=== PATIENT | female | born 1950 | race Caucasian/White ===

== ENCOUNTER 2017-07-23 08:24 | Inpatient (IN) | payer OTHER, MEDICAID, MEDICARE ==
[~2017-07-23] VITALS: Ht 162.6 cm; Wt 80.0 kg
[2017-07-23] VITALS (14 sets, daily range): BP systolic 136–207; BP diastolic 77–102; PULSE 87–119; RESP 18–28; TEMP 98.1–98.8; O2SAT 95–99
[~2017-07-23 08:24] MED LIST: LEVO50IN PO; LORA1TAB PO; LOSA100T3 PO; OMEP20TA39 PO; PAXI40TA PO
[2017-07-23] MEDS ORDERED: SODIUM CHLOR 0.9% 1000 ML INJ 1,000 ML IV SCH (08:51)
[2017-07-23] MEDS ORDERED: LORazepam 2 MG/ML VIAL IV PUSH ONE ×3 (09:00→12:30)
[2017-07-23] MEDS ORDERED: LABETALOL HCL 100 MG/20 ML VIAL IV PUSH ONE (09:00)
[2017-07-23] MEDS ORDERED: SODIUM CHLORIDE 0.9% FLUSH 10 ML FLUSH IV FLUSH PRN (09:00)
--- NOTE | 2017-07-23 09:06 | PD ---
HPI Chief Complaint: Psychiatric Symptoms Time Seen by Provider: 08:37 Travel History International Travel<30 days: No Contact w/Intl Traveler<30days: No Traveled to known affect area: No History of Present Illness HPI The patient is a 67-year-old male who presents emergency department via EMS as a Butt act. The police were apparently flagged down by a neighbor who found the patient outside, crawling on the ground, who was also confused. The patient states she found out some bad news about her daughter who lives in [place], apparently was in the recent accident. The patient states she took gabapentin, possibly yesterday or last night, unknown dose, in order to "calm down". She denies any suicidal ideation or homicidal ideation. However, patient is confused and is a poor and somewhat limited historian. She states she fell down yesterday, is unable to tell me what injuries she has. She denies any significant headache, neck pain, chest pain, shortness breath, nausea , vomiting, or abdominal pain. She denies alcohol or illicit drug ingestion, however, is a poor historian. PFSH Past Medical History Arthritis: Yes Anxiety: Yes Depression: Yes Cardiovascular Problems: Yes (HEART MURMUR) High Cholesterol: Yes COPD: Yes Fibromyalgia: Yes GERD: Yes Respiratory: Yes (COPD) Migraines: Yes Thyroid Disease: Yes (HYPOTHYROID) ?: Not Past Surgical History Surgical History: Unable to Obtain Social History Alcohol Use: No Tobacco Use: Yes (1 PPD X 40 YEARS) Substance Use: No Allergies-Medications (Allergen,Severity, Reaction): Coded Allergies: aspirin (Unverified Allergy, Unknown, 01/22/17) JITTERS Reported Meds & Prescriptions Reported Meds & Active Scripts Active Review of Systems ROS Limitations: Altered Mental Status, Psychotic, Poor Historian Except as stated in HPI: all other systems reviewed are Neg Neurologic: Positive: Change in Mentation Physical Exam Narrative GENERAL: Awake, alert, somewhat psychotic 67-year-old female. SKIN: Focused skin assessment warm/dry. HEAD: Atraumatic. Normocephalic. EYES: Pupils equal and round. No scleral icterus. No injection or drainage. ENT: No nasal bleeding or discharge. Dry mucous membranes. Upper dentures in place. NECK: Trachea midline. No JVD. CARDIOVASCULAR: Regular, tachycardic with a heart rate of 110. RESPIRATORY: No accessory muscle use. Clear to auscultation. Breath sounds equal bilaterally. GASTROINTESTINAL: Abdomen soft, non-tender, nondistended. No rebound tenderness. MUSCULOSKELETAL: No obvious deformities. No clubbing. No cyanosis. No edema. NEUROLOGICAL: Awake and alert. No obvious cranial nerve deficits. Motor grossly within normal limits. Normal speech. Follows simple commands, however, is not oriented to month or year. She does respond to name. PSYCHIATRIC: Appears confused and slightly psychotic. Data Data Last Documented VS Vital Signs Date Time Temp Pulse Resp B/P (MAP) Pulse Ox O2 Delivery O2 Flow Rate FiO2 07/23/17 10:54 108 18 164/80 (108) 95 Nasal Cannula 2.00 07/23/17 08:43 98.4 Orders Orders Electrocardiogram (07/23/17 08:51) Ammonia (07/23/17 08:51) Complete Blood Count With Diff (07/23/17 08:51) Comprehensive Metabolic Panel (07/23/17 08:51) Creatine Kinase (Cpk) (07/23/17 08:51) Prothrombin Time / Inr (Pt) (07/23/17 08:51) Act Partial Throm Time (Ptt) (07/23/17 08:51) Troponin I (07/23/17 08:51) Thyroid Stimulating Hormone (07/23/17 08:51) Urinalysis - C+S If Indicated (07/23/17 08:51) Lactic Acid Sepsis Protocol (07/23/17 08:51) Blood Culture (07/23/17 08:51) Chest, Single Ap (07/23/17 08:51) Ct Brain W/O Iv Contrast(Rout) (07/23/17 08:51) Blood Glucose (07/23/17 08:51) Ecg Monitoring (07/23/17 08:51) Iv Access Insert/Monitor (07/23/17 08:51) Oximetry (07/23/17 08:51) Sodium Chloride 0.9% Flush (Ns Flush) (07/23/17 09:00) Sodium Chlor 0.9% 1000 Ml Inj (Ns 1000 M (07/23/17 08:51) Drug Screen, Random Urine (07/23/17 08:51) Alcohol (Ethanol) (07/23/17 08:51) Labetalol Inj (Trandate Inj) (07/23/17 09:00) Call Poison Control (07/23/17 08:51) Lorazepam Inj (Ativan Inj) (07/23/17 09:00) Tylenol (Acetaminophen) (07/23/17 09:21) Salicylates (Aspirin) (07/23/17 09:21) Lorazepam Inj (Ativan Inj) (07/23/17 10:15) CKMB (07/23/17 09:06) CKMB% (07/23/17 09:06) Urine Culture (07/23/17 09:25) Sodium Chlor 0.9% 1000 Ml Inj (Ns 1000 M (07/23/17 10:45) Admit Order (Ed Use Only) (07/23/17 11:11) Place In Observation (07/23/17 ) Vital Signs (Adult) Q4H (07/23/17 11:11) Activity Oob With Assistance (07/23/17 11:11) Typewriters Functional Tester / Telemetry .CONTINUOUS (07/23/17 11:11) Diet Regular Basic (07/23/17 Lunch) Sodium Chlor 0.9% 1000 Ml Inj (Ns 1000 M (07/23/17 11:11) Sodium Chloride 0.9% Flush (Ns Flush) (07/23/17 11:15) Sodium Chloride 0.9% Flush (Ns Flush) (07/23/17 21:00) Ondansetron Inj (Zofran Inj) (07/23/17 11:15) Comprehensive Metabolic Panel (07/24/17 06:00) Complete Blood Count With Diff (07/24/17 06:00) Creatine Kinase (Cpk) (07/23/17 11:11) Creatine Kinase (Cpk) (07/23/17 17:11) Scd Bilateral/Knee High QUYEN.BID (07/23/17 11:11) Naloxone Inj (Narcan Inj) (07/23/17 11:15) Magnesium Hydroxide Liq (Milk Of Magnesi (07/23/17 11:15) Labs Laboratory Tests Test 07/23/17 09:06 07/23/17 09:20 07/23/17 09:25 07/23/17 09:26 White Blood Count 14.1 TH/MM3 Red Blood Count 4.71 MIL/MM3 Hemoglobin 14.2 GM/DL Hematocrit 41.8 % Mean Corpuscular Volume 88.7 FL Mean Corpuscular Hemoglobin 30.1 PG Mean Corpuscular Hemoglobin Concent 33.9 % Red Cell Distribution Width 15.3 % Platelet Count 246 TH/MM3 Mean Platelet Volume 8.7 FL Neutrophils (%) (Auto) 82.8 % Lymphocytes (%) (Auto) 9.0 % Monocytes (%) (Auto) 8.0 % Eosinophils (%) (Auto) 0.0 % Basophils (%) (Auto) 0.2 % Neutrophils # (Auto) 11.7 TH/MM3 Lymphocytes # (Auto) 1.3 TH/MM3 Monocytes # (Auto) 1.1 TH/MM3 Eosinophils # (Auto) 0.0 TH/MM3 Basophils # (Auto) 0.0 TH/MM3 CBC Comment DIFF FINAL Differential Comment Prothrombin Time 10.7 SEC Prothromb Time International Ratio 1.1 RATIO Activated Partial Thromboplast Time 25.9 SEC Blood Urea Nitrogen 32 MG/DL Creatinine 1.12 MG/DL Random Glucose 137 MG/DL Total Protein 9.1 GM/DL Albumin 4.4 GM/DL Calcium Level 10.0 MG/DL Alkaline Phosphatase 121 U/L Aspartate Amino Transf (AST/SGOT) 48 U/L Alanine Aminotransferase (ALT/SGPT) 24 U/L Total Bilirubin 1.0 MG/DL Sodium Level 139 MEQ/L Potassium Level 3.6 MEQ/L Chloride Level 106 MEQ/L Carbon Dioxide Level 25.7 MEQ/L Anion Gap 7 MEQ/L Estimat Glomerular Filtration Rate 48 ML/MIN Total Creatine Kinase 1428 U/L Creatine Kinase MB 7.2 NG/ML Creatine Kinase MB % 0.5 % Troponin I LESS THAN 0.02 NG/ML Thyroid Stimulating Hormone 3rd Gen 1.710 uIU/ML Ethyl Alcohol Level LESS THAN 3 MG/DL Salicylates Level 2.2 MG/DL Acetaminophen Level LESS THAN 2.0 MCG/ML Urine Color YELLOW Urine Turbidity CLEAR Urine pH 5.5 Urine Specific [place] 1.024 Urine Protein 30 mg/dL Urine Glucose (UA) NEG mg/dL Urine Ketones 10 mg/dL Urine Occult Blood MOD Urine Nitrite NEG Urine Bilirubin NEG Urine Urobilinogen LESS THAN 2.0 MG/DL Urine Leukocyte Esterase NEG Urine RBC 16 /hpf Urine WBC LESS THAN 1 /hpf Urine Bacteria OCC /hpf Urine Hyaline Casts 3 /lpf Microscopic Urinalysis Comment CATH-CULTURE IND Urine Opiates Screen NEG Urine Barbiturates Screen NEG Urine Amphetamines Screen NEG Urine Benzodiazepines Screen NEG Urine Cocaine Screen NEG Urine Cannabinoids Screen NEG Lactic Acid Level 1.8 mmol/L Ammonia 23 MCMOL/L MDM Medical Decision Making Medical Screen Exam Complete: Yes Emergency Medical Condition: Yes Medical Record Reviewed: Yes Interpretation(s) EKG reveals sinus tachycardia with a heart rate of 107. No ischemic changes or ectopy noted. Last Impressions Head CT 07/23/17850 Signed Impressions: Service Date/Time: Sunday, July 23, 2017 09:11 - CONCLUSION: 1. No acute intracranial abnormality identified. Raul Lewis MD Chest X-Ray 07/23/17850 Signed Impressions: Service Date/Time: Sunday, July 23, 2017 09:09 - CONCLUSION: 50 mm nodular density within the left lung base. This may simulate a rounded atelectasis. I cannot exclude a developing infiltrate or a pulmonary nodule. Consider a followup PA and lateral view of the chest upon resolution of acute symptoms to document resolution. Erwin Holt Jr., MD Laboratory Tests Test 07/23/17 09:06 07/23/17 09:20 07/23/17 09:25 07/23/17 09:26 White Blood Count 14.1 TH/MM3 Red Blood Count 4.71 MIL/MM3 Hemoglobin 14.2 GM/DL Hematocrit 41.8 % Mean Corpuscular Volume 88.7 FL Mean Corpuscular Hemoglobin 30.1 PG Mean Corpuscular Hemoglobin Concent 33.9 % Red Cell Distribution Width 15.3 % Platelet Count 246 TH/MM3 Mean Platelet Volume 8.7 FL Neutrophils (%) (Auto) 82.8 % Lymphocytes (%) (Auto) 9.0 % Monocytes (%) (Auto) 8.0 % Eosinophils (%) (Auto) 0.0 % Basophils (%) (Auto) 0.2 % Neutrophils # (Auto) 11.7 TH/MM3 Lymphocytes # (Auto) 1.3 TH/MM3 Monocytes # (Auto) 1.1 TH/MM3 Eosinophils # (Auto) 0.0 TH/MM3 Basophils # (Auto) 0.0 TH/MM3 CBC Comment DIFF FINAL Differential Comment Prothrombin Time 10.7 SEC Prothromb Time International Ratio 1.1 RATIO Activated Partial Thromboplast Time 25.9 SEC Blood Urea Nitrogen 32 MG/DL Creatinine 1.12 MG/DL Random Glucose 137 MG/DL Total Protein 9.1 GM/DL Albumin 4.4 GM/DL Calcium Level 10.0 MG/DL Alkaline Phosphatase 121 U/L Aspartate Amino Transf (AST/SGOT) 48 U/L Alanine Aminotransferase (ALT/SGPT) 24 U/L Total Bilirubin 1.0 MG/DL Sodium Level 139 MEQ/L Potassium Level 3.6 MEQ/L Chloride Level 106 MEQ/L Carbon Dioxide Level 25.7 MEQ/L Anion Gap 7 MEQ/L Estimat Glomerular Filtration Rate 48 ML/MIN Total Creatine Kinase 1428 U/L Creatine Kinase MB 7.2 NG/ML Creatine Kinase MB % 0.5 % Troponin I LESS THAN 0.02 NG/ML Thyroid Stimulating Hormone 3rd Gen 1.710 uIU/ML Ethyl Alcohol Level LESS THAN 3 MG/DL Salicylates Level 2.2 MG/DL Acetaminophen Level LESS THAN 2.0 MCG/ML Urine Color YELLOW Urine Turbidity CLEAR Urine pH 5.5 Urine Specific [place] 1.024 Urine Protein 30 mg/dL Urine Glucose (UA) NEG mg/dL Urine Ketones 10 mg/dL Urine Occult Blood MOD Urine Nitrite NEG Urine Bilirubin NEG Urine Urobilinogen LESS THAN 2.0 MG/DL Urine Leukocyte Esterase NEG Urine RBC 16 /hpf Urine WBC LESS THAN 1 /hpf Urine Bacteria OCC /hpf Urine Hyaline Casts 3 /lpf Microscopic Urinalysis Comment CATH-CULTURE IND Urine Opiates Screen NEG Urine Barbiturates Screen NEG Urine Amphetamines Screen NEG Urine Benzodiazepines Screen NEG Urine Cocaine Screen NEG Urine Cannabinoids Screen NEG Lactic Acid Level 1.8 mmol/L Ammonia 23 MCMOL/L Differential Diagnosis Differential diagnosis includes intentional overdose, accidental overdose, and gabapentin overdose, psychosis, drug ingestion, intracranial hemorrhage, hyponatremia, hypercalcemia, dehydration, acute kidney injury, rhabdomyolysis. Narrative Course IV was established, labs are drawn and sent, the patient was placed on cardiac telemetry monitoring and continuous pulse oximetry monitoring. CT the brain was obtained. Poison control was contacted in regards to possible gabapentin overdose. Patient was tachycardic and hypertensive, was administered Ativan 1 mg intravenously and labetalol 10 mg intravenously with 1 L of normal saline. The patient continued to be psychotic and aggressive, was administered another dose of Ativan 1 mg intravenously. CPK is elevated greater than 1400 consistent with rhabdomyolysis. The patient is clinically dehydrated with mildly elevated creatinine, another liter of IV fluids was ordered. Poison control was contacted, recommended checking acetaminophen and aspirin levels. The patient continues to be altered with rhabdomyolysis and will require IV fluids, therefore, the on-call medical service was paged for admission. The patient will also need psychiatry evaluation on the floor. Physician Communication Physician Communication The patient has [employer], therefore, [facility] were paged for admission. I discussed the patient with Dr. De Souza who agrees with admission. Diagnosis Primary Impression: Gabapentin overdose Qualified Codes: T42.6X4A - Poisoning by other antiepileptic and sedative- hypnotic drugs, undetermined, initial encounter Additional Impression: Rhabdomyolysis Qualified Codes: M62.82 - Rhabdomyolysis Admitting Information Admitting Physician Requests: Admit Condition: Stable Sarath Mejias MD Jul 23, 2017 09:06
[2017-07-23 09:17] LABS: AUTOMATED NEUTROPHIL # 11.7 TH/MM3 (1.8-7.7); BASOPHIL % 0.2 % (0.0-2.0); HEMATOCRIT 41.8 % (35.0-46.0); HEMOGLOBIN 14.2 GM/DL (11.6-15.3); LYMPHOCYTE # 1.3 TH/MM3 (1.0-4.8); MEAN CELL VOLUME 88.7 FL (80.0-100.0); MEAN CORPUSCULAR HEMOGLOBIN 30.1 PG (27.0-34.0); MEAN CORPUSCULAR HGB CONC 33.9 % (32.0-36.0); MEAN PLATELET VOLUME 8.7 FL (7.0-11.0); MONOCYTE # 1.1 TH/MM3 (0-0.9); NEUT % 82.8 % (16.0-70.0); PLATELET COUNT 246 TH/MM3 (150-450); RED BLOOD COUNT 4.71 MIL/MM3 (4.00-5.30); RED CELL DISTRIBUTION WIDTH 15.3 % (11.6-17.2); WHITE BLOOD COUNT 14.1 TH/MM3 (4.0-11.0)
--- NOTE | 2017-07-23 09:22 | RADRPT ---
EXAM DATE/TIME: 07/23/2017 09:09 [facility] COMPARISON: No previous studies available for comparison. INDICATIONS : Shortness of breath. MEDICAL HISTORY : Chronic obstructive pulmonary disease. SURGICAL HISTORY : None. ENCOUNTER: Initial ACUITY: 1 day PAIN SCORE: 0/10 LOCATION: Bilateral chest FINDINGS: A single frontal view the chest is a 1.5 cm area of nodular-like density within the left lung base. T here is linear atelectasis within the right lung base. Remaining lungs are clear. No effusions. Heart is normal in size. Bony structures are unremarkable. CONCLUSION: 50 mm nodular density within the left lung base. This may simulate a rounded atelectasis. I cannot ex clude a developing infiltrate or a pulmonary nodule. Consider a followup PA and lateral view of the c hest upon resolution of acute symptoms to document resolution. Erwin Holt Jr., MD on July 23, 2017 at 9:18 Board Certified Radiologist. This report was verified electronically.
[2017-07-23 09:27] LABS: INTERNATIONAL NORMALIZED RATIO 1.1 RATIO; PROTHROMBIN TIME - PATIENT 10.7 SEC (9.8-11.6)
--- NOTE | 2017-07-23 09:45 | RADRPT ---
EXAM DATE/TIME: 07/23/2017 09:11 [facility] COMPARISON: CT BRAIN W/O CONTRAST, August 21, 2015, 14:55. INDICATIONS : Altered mental status. RADIATION DOSE: 56.35 CTDIvol (mGy) MEDICAL HISTORY : Cardiovascular disease. Chronic obstructive pulmonary disease. SURGICAL HISTORY : None. ENCOUNTER: Initial ACUITY: 1 day PAIN SCALE: Non-responsive LOCATION: cranial TECHNIQUE: Multiple contiguous axial images were obtained of the head. Using automated exposure control and adj ustment of the mA and/or kV according to patient size, radiation dose was kept as low as reasonably a chievable to obtain optimal diagnostic quality images. DICOM format image data is available electro nically for review and comparison. FINDINGS: CEREBRUM: The ventricles are normal for age. No evidence of midline shift, mass lesion, hemorrhage or acute in farction. No extra-axial fluid collections are seen. POSTERIOR FOSSA: The cerebellum and brainstem are intact. The 4th ventricle is midline. The cerebellopontine angle i s unremarkable. EXTRACRANIAL: The visualized portion of the orbits is intact. SKULL: The calvaria is intact. No evidence of skull fracture. CONCLUSION: 1. No acute intracranial abnormality identified. Raul Lewis MD on July 23, 2017 at 9:41 Board Certified Radiologist. This report was verified electronically.
[2017-07-23 09:53] LABS: ALBUMIN 4.4 GM/DL (3.4-5.0); AST (GOT) 48 U/L (15-37); BICARBONATE 25.7 MEQ/L (21.0-32.0); BLOOD UREA NITROGEN 32 MG/DL (7-18); CHLORIDE 106 MEQ/L (98-107); CREATININE 1.12 MG/DL (0.50-1.00); GLOMERULAR FILTRATION RATE 48 ML/MIN (>89); GLUCOSE,RANDOM 137 MG/DL (74-106); SODIUM (NA) 139 MEQ/L (136-145)
[2017-07-23 09:54] LABS: ALT (GPT) 24 U/L (10-53)
[2017-07-23 10:07] LABS: ALKALINE PHOSPHATASE 121 U/L (45-117); TOTAL PROTEIN 9.1 GM/DL (6.4-8.2); TROPONIN I LESS THAN 0.02 NG/ML (0.02-0.05)
[2017-07-23 10:20] LABS: BACTERIA, URINE OCC /hpf; BILIRUBIN, URINE NEG (NEG); BLOOD, URINE MOD (NEG); GLUCOSE,URINE NEG (NEG); HYALINE CAST, URINE 3 /lpf (RARE); KETONE, URINE 10 mg/dL (NEG); NITRITE,URINE NEG (NEG); PH, URINE 5.5 (5.0-8.5); URINE COLOR YELLOW (YELLW/STRAW); URINE LEUKOCYTE ESTERASE NEG (NEG)
[2017-07-23] MEDS ORDERED: SODIUM CHLOR 0.9% 1000 ML INJ 1,000 ML IV ONE (10:45)
[2017-07-23] MEDS: SODIUM CHLOR 0.9% 1000 ML INJ 1,000 ML IV SCH (11:11)
[2017-07-23] MEDS ORDERED: NALOXONE HCL 0.4 MG/ML AMP IV PUSH PRN (11:15)
[2017-07-23] MEDS ORDERED: MAGNESIUM HYDROXIDE SUSP 30 ML CUP PO PRN (11:15)
[2017-07-23] MEDS ORDERED: ONDANSETRON HCL 4 MG/2 ML VIAL IVP PRN (11:15)
--- NOTE | 2017-07-23 11:39 | HHI.HP ---
[facility] Primary Care Physician Unknown Admission Diagnosis gabapentin overdose, rhabdomyolysis, Butt act Diagnoses: (1) Acute delirium Diagnosis: Principal (2) Rhabdomyolysis Diagnosis: Principal Travel History International Travel<30 Days: No Contact w/Intl Traveler <30 Da: No Traveled to Known Affected Are: No History of Present Illness Mrs. Krishnamurthy is a 67-year-old female. She is on a Butt act here secondary to being found confused in her front yard. She does not oriented to place time or self she has previously stated that the year is 1983. Most of the time she is in the delirium. Findings in the ER are positive for mild rhabdomyolysis. She takes gabapentin at baseline and overdose cannot be ruled out. No prior history of known seizure disorder. At this point she is not able to contribute any meaningful history. Review of Systems ROS Limitations: Altered Mental Status, Poor Historian Past Family Social History Past Medical History Depression Anxiety Osteoarthritis Fibromyalgia COPD Gastroesophageal reflux disease Hypothyroidism Benign cardiac murmur Past Surgical History Unable to obtain at this time secondary to delirium Reported Medications Administered Medications Medications (Trade) Dose Ordered Sig/Kike Route PRN Reason Start Time Stop Time Status Last Admin Dose Admin Sodium Chloride 1,000 ml @ 999 mls/hr BOLUS ONCE IV 07/23/17 10:45 07/23/17 11:45 07/23/17 10:53 Allergies: Coded Allergies: aspirin (Unverified Allergy, Unknown, 01/22/17) JITTERS Active Ordered Medications Administered Medications Medications (Trade) Dose Ordered Sig/Kike Route PRN Reason Start Time Stop Time Status Last Admin Dose Admin Sodium Chloride 1,000 ml @ 999 mls/hr BOLUS ONCE IV 07/23/17 10:45 07/23/17 11:45 07/23/17 10:53 Family History Unable to obtain at this time secondary to delirium Social History Patient smokes 1 pack per day No known alcohol abuse No known illicit drug abuse Physical Exam Vital Signs Vital Signs Date Time Temp Pulse Resp B/P (MAP) Pulse Ox O2 Delivery O2 Flow Rate FiO2 07/23/17 10:54 108 18 164/80 (108) 95 Nasal Cannula 2.00 07/23/17 10:10 104 18 183/86 (118) 95 Nasal Cannula 2.00 07/23/17 09:31 106 18 174/87 (116) 95 Nasal Cannula 2.00 07/23/17 09:14 18 99 Nasal Cannula 2.00 07/23/17 08:43 98.4 115 28 207/102 (137) 95 Nasal Cannula 2.00 Physical Exam GENERAL: NAD, A&Ox0 HEAD: Normocephalic. NECK: Supple, trachea midline. No lymphadenopathy. EYES: No scleral icterus. No injection or drainage. CARDIOVASCULAR: Regular rate and rhythm without murmurs, gallops, or rubs. RESPIRATORY: Breath sounds equal bilaterally. No accessory muscle use. GASTROINTESTINAL: Abdomen soft, non-tender, nondistended. MUSCULOSKELETAL: No cyanosis, or edema. SKIN: Warm and dry. NEURO: No focal neurological deficitis. Laboratory Laboratory Tests Test 07/23/17 09:06 07/23/17 09:20 07/23/17 09:25 07/23/17 09:26 White Blood Count 14.1 Red Blood Count 4.71 Hemoglobin 14.2 Hematocrit 41.8 Mean Corpuscular Volume 88.7 Mean Corpuscular Hemoglobin 30.1 Mean Corpuscular Hemoglobin Concent 33.9 Red Cell Distribution Width 15.3 Platelet Count 246 Mean Platelet Volume 8.7 Neutrophils (%) (Auto) 82.8 Lymphocytes (%) (Auto) 9.0 Monocytes (%) (Auto) 8.0 Eosinophils (%) (Auto) 0.0 Basophils (%) (Auto) 0.2 Neutrophils # (Auto) 11.7 Lymphocytes # (Auto) 1.3 Monocytes # (Auto) 1.1 Eosinophils # (Auto) 0.0 Basophils # (Auto) 0.0 CBC Comment DIFF FINAL Differential Comment Prothrombin Time 10.7 Prothromb Time International Ratio 1.1 Activated Partial Thromboplast Time 25.9 Blood Urea Nitrogen 32 Creatinine 1.12 Random Glucose 137 Total Protein 9.1 Albumin 4.4 Calcium Level 10.0 Alkaline Phosphatase 121 Aspartate Amino Transf (AST/SGOT) 48 Alanine Aminotransferase (ALT/SGPT) 24 Total Bilirubin 1.0 Sodium Level 139 Potassium Level 3.6 Chloride Level 106 Carbon Dioxide Level 25.7 Anion Gap 7 Estimat Glomerular Filtration Rate 48 Total Creatine Kinase 1428 Creatine Kinase MB 7.2 Creatine Kinase MB % 0.5 Troponin I LESS THAN 0.02 Thyroid Stimulating Hormone 3rd Gen 1.710 Ethyl Alcohol Level LESS THAN 3 Salicylates Level 2.2 Acetaminophen Level LESS THAN 2.0 Urine Color YELLOW Urine Turbidity CLEAR Urine pH 5.5 Urine Specific [place] 1.024 Urine Protein 30 Urine Glucose (UA) NEG Urine Ketones 10 Urine Occult Blood MOD Urine Nitrite NEG Urine Bilirubin NEG Urine Urobilinogen LESS THAN 2.0 Urine Leukocyte Esterase NEG Urine RBC 16 Urine WBC LESS THAN 1 Urine Bacteria OCC Urine Hyaline Casts 3 Microscopic Urinalysis Comment CATH-CULTURE IND Lactic Acid Level 1.8 Ammonia 23 Date/Time Source Procedure Growth Status 07/23/17 09:29 Blood Peripheral Aerobic Blood Culture Pending Received 07/23/17 09:29 Blood Peripheral Anaerobic Blood Culture Pending Received 07/23/17 09:25 Urine Catheterized Urine Urine Culture Pending Received Result Diagram: 07/23/1790507/23/[id number] Caprini VTE Risk Assessment Caprini VTE Risk Assessment: No/Low Risk (score <= 1) Caprini Risk Assessment Model Point Value = 1 Point Value = 2 Point Value = 3 Point Value = 5 Age 41-60 Minor surgery BMI > 25 kg/m2 Swollen legs Varicose veins or History of unexplained or recurrent spontaneous Oral contraceptives or hormone replacement Sepsis (< 1 month) Serious lung disease, including pneumonia (< 1 month) Abnormal pulmonary function Acute myocardial infarction Congestive heart failure (< 1 month) History of inflammatory bowel disease Medical patient at bed rest Age 61-74 Arthroscopic surgery Major open surgery (> 45 min) Laparoscopic surgery (> 45 min) Malignancy Confined to bed (> 72 hours) Immobilizing plaster cast Central venous access Age >= 75 History of VTE Family history of VTE Factor V Leiden Prothrombin [id number] Lupus anticoagulant Anticardiolipin antibodies Elevated serum homocysteine Heparin-induced thrombocytopenia Other congenital or acquired thrombophilia Stroke (< 1 month) Elective arthroplasty Hip, pelvis, or leg fracture Acute spinal cord injury (< 1 month) Prophylaxis Regimen Total Risk Factor Score Risk Level Prophylaxis Regimen 0-1 Low Early ambulation 2 Moderate Order ONE of the following: *Sequential Compression Device (SCD) *Heparin 5000 units SQ BID 3-4 Higher Order ONE of the following medications: *Heparin 5000 units SQ TID *Enoxaparin/Lovenox 40 mg SQ daily (WT < 150 kg, CrCl > 30 mL/min) *Enoxaparin/Lovenox 30 mg SQ daily (WT < 150 kg, CrCl > 10-29 mL/min) *Enoxaparin/Lovenox 30 mg SQ BID (WT < 150 kg, CrCl > 30 mL/min) AND/OR *Sequential Compression Device (SCD) 5 or more Highest Order ONE of the following medications: *Heparin 5000 units SQ TID (Preferred with Epidurals) *Enoxaparin/Lovenox 40 mg SQ daily (WT < 150 kg, CrCl > 30 mL/min) *Enoxaparin/Lovenox 30 mg SQ daily (WT < 150 kg, CrCl > 10-29 mL/min) *Enoxaparin/Lovenox 30 mg SQ BID (WT < 150 kg, CrCl > 30 mL/min) AND *Sequential Compression Device (SCD) Assessment and Plan Problem List: (1) Acute delirium ICD Code: R41.0 - Disorientation, unspecified (2) Rhabdomyolysis ICD Code: M62.82 - Rhabdomyolysis Status: Acute Assessment and Plan 67-year-old female admitted secondary to acute delirium Acute delirium Etiology uncertain Check EEG CT of brain is negative Treat for gabapentin overdose IV hydration Follow on telemetry for 24 hours Consider physical therapy evaluation tomorrow if patient's mental status improves Psych consult Rhabdomyolysis IV hydration Follow CK levels Nicotine dependence She is presently incoherent For treatment for now Depression Anxiety Osteoarthritis Fibromyalgia COPD Gastroesophageal reflux disease Benign cardiac murmur No exacerbation of these baseline conditions Follow Clinically DVT prophylaxis SCDs Problem Qualifiers (1) Rhabdomyolysis: Qualified Codes: M62.82 - Rhabdomyolysis Raul De Souza MD Jul 23, 2017 11:39
[2017-07-23] MEDS ORDERED: cloNIDine HCL 0.1 MG TAB PO PRN (15:15)
--- NOTE | 2017-07-23 15:36 | PD.PSY.CON ---
Provisional Diagnosis Admission Date Jul 23, 2017 at 11:13 [place]. Delirium due to another underlying medical condition History of Present Illness Service Psychiatry Consult Requested By ER team Reason for Consult Under Butt act due to psychotic behavior Primary Care Physician Unknown HPI The patient is a is a 67-year-old woman, with unknown social, psychiatric history, who came to the hospital a Butt act here secondary to being found confused in her front yard very disorganized. She does not oriented to place time or self she has previously stated that the year is 1983. Most of the time she is in the delirium. Findings in the ER are positive for mild rhabdomyolysis. She takes gabapentin at baseline and overdose cannot be ruled out. No prior history of known seizure disorder. At this point she is not able to contribute any meaningful history. On psychiatric evaluation the patient is alert, but very disoriented and confused, she is unable to provide any meaningful information for the psychiatric assessment at this moment. Review of Systems ROS Limitations: Altered Mental Status Past Family Social History Coded Allergies: aspirin (Unverified Allergy, Unknown, 01/22/17) JITTERS Current Medications Medications (Trade) Dose Ordered Sig/Kike Route Start Time Stop Time Status Last Admin Sodium Chloride 1,000 ml @ 100 mls/hr Q10H IV 07/23/17 11:11 07/23/17 11:11 (NS Flush) 2 ml UNSCH PRN IV FLUSH 07/23/17 11:15 (NS Flush) 2 ml BID IV FLUSH 07/23/17 21:00 (Zofran Inj) 4 mg Q6H PRN IVP 07/23/17 11:15 (Narcan Inj) 0.4 mg UNSCH PRN IV PUSH 07/23/17 11:15 (Milk Of Magnesia Liq) 30 ml Q12H PRN PO 07/23/17 11:15 (Vasotec Inj) 1.25 mg Q6H PRN IV PUSH 07/23/17 15:15 (Catapres) 0.1 mg Q6H PRN PO 07/23/17 15:15 (Ativan Inj) 0.5 mg Q6H PRN IV PUSH 07/23/17 15:15 Physical Exam Vital Signs Vital Signs Date Time Temp Pulse Resp B/P (MAP) Pulse Ox O2 Delivery O2 Flow Rate FiO2 07/23/17 12:33 113 18 177/99 (125) 95 Nasal Cannula 2.00 07/23/17 08:43 98.4 Lab Results Test 07/23/17 09:06 07/23/17 09:20 07/23/17 09:25 07/23/17 09:26 White Blood Count 14.1 TH/MM3 Red Blood Count 4.71 MIL/MM3 Hemoglobin 14.2 GM/DL Hematocrit 41.8 % Mean Corpuscular Volume 88.7 FL Mean Corpuscular Hemoglobin 30.1 PG Mean Corpuscular Hemoglobin Concent 33.9 % Red Cell Distribution Width 15.3 % Platelet Count 246 TH/MM3 Mean Platelet Volume 8.7 FL Neutrophils (%) (Auto) 82.8 % Lymphocytes (%) (Auto) 9.0 % Monocytes (%) (Auto) 8.0 % Eosinophils (%) (Auto) 0.0 % Basophils (%) (Auto) 0.2 % Neutrophils # (Auto) 11.7 TH/MM3 Lymphocytes # (Auto) 1.3 TH/MM3 Monocytes # (Auto) 1.1 TH/MM3 Eosinophils # (Auto) 0.0 TH/MM3 Basophils # (Auto) 0.0 TH/MM3 CBC Comment DIFF FINAL Differential Comment Prothrombin Time 10.7 SEC Prothromb Time International Ratio 1.1 RATIO Activated Partial Thromboplast Time 25.9 SEC Blood Urea Nitrogen 32 MG/DL Creatinine 1.12 MG/DL Random Glucose 137 MG/DL Total Protein 9.1 GM/DL Albumin 4.4 GM/DL Calcium Level 10.0 MG/DL Alkaline Phosphatase 121 U/L Aspartate Amino Transf (AST/SGOT) 48 U/L Alanine Aminotransferase (ALT/SGPT) 24 U/L Total Bilirubin 1.0 MG/DL Sodium Level 139 MEQ/L Potassium Level 3.6 MEQ/L Chloride Level 106 MEQ/L Carbon Dioxide Level 25.7 MEQ/L Anion Gap 7 MEQ/L Estimat Glomerular Filtration Rate 48 ML/MIN Total Creatine Kinase 1428 U/L Creatine Kinase MB 7.2 NG/ML Creatine Kinase MB % 0.5 % Troponin I LESS THAN 0.02 NG/ML Thyroid Stimulating Hormone 3rd Gen 1.710 uIU/ML Ethyl Alcohol Level LESS THAN 3 MG/DL Salicylates Level 2.2 MG/DL Acetaminophen Level LESS THAN 2.0 MCG/ML Urine Color YELLOW Urine Turbidity CLEAR Urine pH 5.5 Urine Specific [place] 1.024 Urine Protein 30 mg/dL Urine Glucose (UA) NEG mg/dL Urine Ketones 10 mg/dL Urine Occult Blood MOD Urine Nitrite NEG Urine Bilirubin NEG Urine Urobilinogen LESS THAN 2.0 MG/DL Urine Leukocyte Esterase NEG Urine RBC 16 /hpf Urine WBC LESS THAN 1 /hpf Urine Bacteria OCC /hpf Urine Hyaline Casts 3 /lpf Microscopic Urinalysis Comment CATH-CULTURE IND Urine Opiates Screen NEG Urine Barbiturates Screen NEG Urine Amphetamines Screen NEG Urine Benzodiazepines Screen NEG Urine Cocaine Screen NEG Urine Cannabinoids Screen NEG Lactic Acid Level 1.8 mmol/L Ammonia 23 MCMOL/L Date/Time Source Procedure Growth Status 07/23/17 09:29 Blood Peripheral Aerobic Blood Culture Pending Received 07/23/17 09:29 Blood Peripheral Anaerobic Blood Culture Pending Received 07/23/17 09:25 Urine Catheterized Urine Urine Culture Pending Received Mental Status Examination Mental Status Exam Remarks Limited due to lack of cooperation Assessment & Plan Problem List: (1) Delirium due to another medical condition ICD Codes: F05 - Delirium due to known physiological condition Assessment & Plan: On psychiatric evaluation today the patient is disoriented, very confused and disorganized, with impaired attention and level of consciousness which seems to be consistent with acute delirium that most probably is related with the gabapentin overdose and acute kidney injury. I will start the patient in a very low dose of antipsychotic to help with delirium , Seroquel 12.5 mg twice a day. We tried to find collateral information, but unfortunately the person listed in the medical record did not answer. I will follow-up. (2) Rhabdomyolysis ICD Codes: M62.82 - Rhabdomyolysis Status: Acute (3) Gabapentin overdose ICD Codes: T42.6X1A - Poisoning by other antiepileptic and sedative-hypnotic drugs, accidental (unintentional), initial encounter Status: Acute Assessment & Plan Estimated LOS: days Problem Qualifiers (1) Rhabdomyolysis: Qualified Codes: M62.82 - Rhabdomyolysis (2) Gabapentin overdose: Qualified Codes: T42.6X4A - Poisoning by other antiepileptic and sedative- hypnotic drugs, undetermined, initial encounter Delon Georges MD Jul 23, 2017 15:36
[2017-07-23] MEDS ORDERED: PILL SPLITTER OTHER PRN (15:45)
--- NOTE | 2017-07-23 15:51 | MG ---
cc: PRADEEP MORALES M.D. Lab No: [id number] Date:07/23/2017 Age: Sex: F Race: TECHNIQUE 17 channel EEG. DESCRIPTION The background rhythm reveals mild slowing in the theta range at roughly 67 Hz amplitude is 10-20 microvolts. There are no lateralizing features identified and no epileptic features are identified. There is some muscle artifact. Photic stimulation results in a modest driving response. INTERPRETATION Abnormal study consistent with a [id number] encephalopathy. MD DELMAR Morrison/edward /3:04 PM /3:31 PM
[2017-07-23] MEDS: LORazepam 2 MG/ML VIAL IV PUSH PRN (16:01)
[2017-07-23] MEDS: ENALAPRILAT 1.25 MG/ML VIAL IV PUSH PRN (16:01)
--- NOTE | 2017-07-23 18:50 | EKG ---
Date Performed: 07/23/2017 Time Performed: 08:55:52 PTAGE: 67 years EKG: SINUS TACHYCARDIA When compared to previous tracing, sinus rate has increased. ABNORMAL RHY THM ECG PREVIOUS TRACING : 08/21/2015 15.10 DOCTOR: Navjot Norton Interpretating Date/Time 07/23/2017 18:49:16
[2017-07-23] MEDS: SODIUM CHLORIDE 0.9% FLUSH 10 ML FLUSH IV FLUSH SCH (20:07)
[2017-07-23] MEDS: RESP: ALBUTEROL 2.5 MG/IPRATROPIUM 0.5 MG NEB (PRN) NEB (20:15)
[2017-07-24] VITALS (11 sets, daily range): BP systolic 168–188; BP diastolic 79–101; PULSE 86–121; RESP 18–20; TEMP 97.3–98; O2SAT 94–98
[2017-07-24] MEDS: LORazepam 2 MG/ML VIAL IV PUSH PRN ×2 (00:17→15:15)
[2017-07-24] MEDS ORDERED: QUEtiapine FUMARATE 25 MG TAB PO ONE (02:45)
[2017-07-24] MEDS: RESP: ALBUTEROL 2.5 MG/IPRATROPIUM 0.5 MG NEB (PRN) NEB ×3 (03:44→19:12)
[2017-07-24] MEDS ORDERED: methylPREDNISolone SOD SUCC 125 MG/2 ML VIAL IV PUSH ONE (03:45)
[2017-07-24] MEDS: PANTOPRAZOLE SODIUM 40 MG VIAL IV PUSH SCH ×2 (03:52→15:49)
[2017-07-24] MEDS: cefTRIAXone INJ 1,000 MG in SODIUM CHLORIDE 0.9% INJ 100 ML IV SCH (03:53)
--- NOTE | 2017-07-24 04:27 | RADRPT ---
EXAM DATE/TIME: 07/24/2017 04:07 [facility] COMPARISON: No previous studies available for comparison. INDICATIONS : Vomiting. MEDICAL HISTORY : Cardiovascular disease. Chronic obstructive pulmonary disease SURGICAL HISTORY : None. ENCOUNTER: Initial ACUITY: 1 day PAIN SCORE: 2/10 LOCATION: Bilateral abdomen FINDINGS: Supine view of the abdomen was performed. The abdominal bowel gas pattern is normal. No abnormal ma sses, calcifications, or organomegaly is seen. The osseous structures are unremarkable. Popcorn type calcifications in the pelvis are felt to be related to fibroids. CONCLUSION: No acute disease. George Conn MD on July 24, 2017 at 4:24 Board Certified Radiologist. This report was verified electronically.
[2017-07-24] MEDS: AZITHROMYCIN INJ 500 MG in SODIUM CHLOR 0.9% 250 ML INJ 250 ML IV SCH (05:47)
--- NOTE | 2017-07-24 06:28 | RADRPT ---
EXAM DATE/TIME: 07/24/2017 06:14 [facility] COMPARISON: CHEST SINGLE AP, July 23, 2017, 9:09. INDICATIONS : Shortness of breath. RADIATION DOSE: 13.26 CTDIvol (mGy) MEDICAL HISTORY : Cardiovascular disease. Chronic obstructive pulmonary disease. SURGICAL HISTORY : None. ENCOUNTER: Initial ACUITY: 1 day PAIN SCALE: 0/10 LOCATION: chest TECHNIQUE: Volumetric scanning of the chest was performed. Using automated exposure control and adjustment of t he mA and/or kV according to patient size, radiation dose was kept as low as reasonably achievable to obtain optimal diagnostic quality images. DICOM format image data is available electronically for r eview and comparison. Follow-up recommendations for detected pulmonary nodules are based at a minimum on nodule size and pa tient risk factors according to Fleischner Society Guidelines. FINDINGS: The lungs are clear. No evidence of pneumonia. No pleural or pericardial effusions or adenopathy. The re is prominent coronary artery calcification seen. The osseous structures are intact. CONCLUSION: Clear lungs. Coronary artery calcification. George Conn MD on July 24, 2017 at 6:25 Board Certified Radiologist. This report was verified electronically.
[2017-07-24] MEDS: SODIUM CHLOR 0.9% 1000 ML INJ 1,000 ML IV SCH ×3 (07:11→17:11)
[2017-07-24 07:25] LABS: AUTOMATED NEUTROPHIL # 10.6 TH/MM3 (1.8-7.7); BASOPHIL % 0.2 % (0.0-2.0); HEMOGLOBIN 12.9 GM/DL (11.6-15.3); LYMPH % 6.4 % (9.0-44.0); LYMPHOCYTE # 0.8 TH/MM3 (1.0-4.8); MEAN CELL VOLUME 88.6 FL (80.0-100.0); MEAN CORPUSCULAR HEMOGLOBIN 30.2 PG (27.0-34.0); MEAN CORPUSCULAR HGB CONC 34.1 % (32.0-36.0); MEAN PLATELET VOLUME 8.9 FL (7.0-11.0); MONO % 2.3 % (0.0-8.0); MONOCYTE # 0.3 TH/MM3 (0-0.9); NEUT % 91.1 % (16.0-70.0); PLATELET COUNT 223 TH/MM3 (150-450); RED BLOOD COUNT 4.29 MIL/MM3 (4.00-5.30); RED CELL DISTRIBUTION WIDTH 15.8 % (11.6-17.2); WHITE BLOOD COUNT 11.7 TH/MM3 (4.0-11.0)
[2017-07-24 07:59] LABS: ALBUMIN 3.8 GM/DL (3.4-5.0); ALT (GPT) 23 U/L (10-53); AST (GOT) 56 U/L (15-37); BICARBONATE 24.9 MEQ/L (21.0-32.0); BLOOD UREA NITROGEN 12 MG/DL (7-18); CALCIUM 9.2 MG/DL (8.5-10.1); CHLORIDE 106 MEQ/L (98-107); GLOMERULAR FILTRATION RATE 99 ML/MIN (>89); GLUCOSE,RANDOM 127 MG/DL (74-106); SODIUM (NA) 140 MEQ/L (136-145)
[2017-07-24 08:11] LABS: ALKALINE PHOSPHATASE 99 U/L (45-117)
[2017-07-24] MEDS: SODIUM CHLORIDE 0.9% FLUSH 10 ML FLUSH IV FLUSH SCH ×2 (09:00→21:32)
[2017-07-24] MEDS: methylPREDNISolone SOD SUCC 40 MG/1 ML VIAL IV PUSH SCH ×2 (12:16→15:49)
[2017-07-24] MEDS: QUEtiapine FUMARATE 25 MG TAB PO SCH ×2 (12:16→17:27)
[2017-07-24] MEDS ORDERED: NIFEdipine 30 MG SUSTAINED RELEASE TAB PO ONE (13:00)
[2017-07-24] MEDS ORDERED: POTASSIUM CHLORIDE 10 MEQ CONTROLLED RELEASE TAB PO ONE (13:00)
[2017-07-24] MEDS: ENALAPRILAT 1.25 MG/ML VIAL IV PUSH PRN (15:50)
--- NOTE | 2017-07-24 16:12 | HHI.PR ---
Subjective Remarks Patient continues confused, however improved according to nursing. Treat is very disjointed, however patient says that she received some bad news recently and did take too much medication. She does say that she took too much gabapentin. Objective Vital Signs Date Time Temp Pulse Resp B/P (MAP) Pulse Ox O2 Delivery O2 Flow Rate FiO2 07/24/17 15:46 112 185/97 (126) 07/24/17 14:41 97.3 121 20 188/98 (128) 95 07/24/17 11:45 98.0 114 176/97 (123) 94 07/24/17 07:45 112 07/24/17 07:23 96 07/24/17 07:03 97.6 86 20 175/96 (122) 97 07/23/17 23:14 98.1 87 18 164/84 (110) 97 07/23/17 22:05 98.8 115 19 136/83 (100) 96 07/23/17 21:50 07/23/17 21:19 119 24 163/79 (107) 95 Nasal Cannula 3.00 07/23/17 20:47 118 22 172/77 (108) 97 Nasal Cannula 3.00 07/23/17 20:10 98 Nasal Cannula 2.00 07/23/17 19:11 117 24 179/94 (122) 96 Nasal Cannula 2.00 07/23/17 17:45 113 18 171/97 (121) 98 Room Air 07/23/17 16:53 113 18 187/91 (123) 97 Room Air I/O 07/23/17 07/23/17 07/23/17 07/24/17 07/24/17 07/24/17 07:00 15:00 23:00 07:00 15:00 23:00 Intake Total 2000 ml Balance 2000 ml Intake IV Total 2000 ml Result Diagram: 07/24/17 0641 07/24/17 0641 Objective Remarks GENERAL: Patient awake, very disjointed and slowed speech. Disoriented. SKIN: Warm and dry. HEAD: Normocephalic. EYES: No scleral icterus. No injection or drainage. NECK: Supple, trachea midline. No JVD. CARDIOVASCULAR: Regular rate and rhythm without murmurs, gallops, or rubs. RESPIRATORY: Breath sounds equal bilaterally. No accessory muscle use. GASTROINTESTINAL: Abdomen soft, non-tender, nondistended. MUSCULOSKELETAL: No cyanosis, or edema. BACK: Nontender without obvious deformity. No CVA tenderness. A/P Assessment and Plan 67-year-old female admitted secondary to acute delirium //Acute delirium Etiology uncertain Check EEG CT of brain is negative Treat for gabapentin overdose IV hydration Follow on telemetry for 24 hours Consider physical therapy evaluation tomorrow if patient's mental status improves Psych consult = Appears to be secondary to gabapentin overdose based on history. Will check gabapentin level. Continue to hold medication. Continue to monitor. Appreciate psychiatry assistance. //Rhabdomyolysis IV hydration Follow CK levels = CK 1555 today. Mild improvement. Continue IV fluid. Continue to monitor. //Accelerated hypertension. Systolic blood pressures up to the 180s. Started on nifedipine. Continue to monitor //Nicotine dependence -We will need to discuss cessation with patient when she is more coherent. //Depression Anxiety Osteoarthritis Fibromyalgia COPD Gastroesophageal reflux disease Benign cardiac murmur No exacerbation of these baseline conditions Follow Clinically = Psychiatry following. Appreciate assistance. //Suspect intentional overdose. = Psychiatry following. Patient may corrected. Continue sitter. Appreciate psychiatry assistance. /Hypokalemia. Potassium 3.1. Replace. Continue to monitor. DVT prophylaxis SCDs Discharge Planning Patient continues Butt acted due to suspected overdose. Continued rhabdomyolysis. Awaiting improvement in CK. Brandt Molina MD Jul 24, 2017 16:12
[2017-07-25] MEDS: RESP: ALBUTEROL 2.5 MG/IPRATROPIUM 0.5 MG NEB (PRN) NEB (00:39)
[2017-07-25 03:48] VITALS: BP 166/89; PULSE 113; RESP 18; TEMP 98.1; O2SAT 95
[2017-07-25] MEDS: cefTRIAXone INJ 1,000 MG in SODIUM CHLORIDE 0.9% INJ 100 ML IV SCH (04:26)
[2017-07-25] MEDS: PANTOPRAZOLE SODIUM 40 MG VIAL IV PUSH SCH ×2 (04:26→16:20)
[2017-07-25 05:20] LABS: AUTOMATED NEUTROPHIL # 9.4 TH/MM3 (1.8-7.7); HEMOGLOBIN 12.5 GM/DL (11.6-15.3); LYMPH % 10.6 % (9.0-44.0); LYMPHOCYTE # 1.2 TH/MM3 (1.0-4.8); MEAN CELL VOLUME 87.8 FL (80.0-100.0); MEAN CORPUSCULAR HEMOGLOBIN 29.6 PG (27.0-34.0); MEAN CORPUSCULAR HGB CONC 33.8 % (32.0-36.0); MEAN PLATELET VOLUME 9.1 FL (7.0-11.0); MONO % 9.8 % (0.0-8.0); MONOCYTE # 1.2 TH/MM3 (0-0.9); NEUT % 79.6 % (16.0-70.0); PLATELET COUNT 225 TH/MM3 (150-450); RED BLOOD COUNT 4.22 MIL/MM3 (4.00-5.30); RED CELL DISTRIBUTION WIDTH 15.3 % (11.6-17.2); WHITE BLOOD COUNT 11.8 TH/MM3 (4.0-11.0)
[2017-07-25] MEDS: AZITHROMYCIN INJ 500 MG in SODIUM CHLOR 0.9% 250 ML INJ 250 ML IV SCH (05:25)
[2017-07-25] MEDS: SODIUM CHLOR 0.9% 1000 ML INJ 1,000 ML IV SCH ×3 (05:25→23:20)
[2017-07-25 05:38] LABS: ALBUMIN 3.8 GM/DL (3.4-5.0); BICARBONATE 22.8 MEQ/L (21.0-32.0); CALCIUM 9.3 MG/DL (8.5-10.1); CREATININE 0.59 MG/DL (0.50-1.00); MAGNESIUM 1.7 MG/DL (1.5-2.5)
[2017-07-25 05:53] LABS: PHOSPHORUS 1.7 MG/DL (2.5-4.9)
[2017-07-25 07:55] VITALS: BP 166/102; PULSE 99; RESP 20; TEMP 98.1; O2SAT 97
[2017-07-25] MEDS: SODIUM CHLORIDE 0.9% FLUSH 10 ML FLUSH IV FLUSH SCH ×2 (08:24→22:08)
[2017-07-25] MEDS: NIFEdipine 30 MG SUSTAINED RELEASE TAB PO SCH (08:24)
[2017-07-25] MEDS: QUEtiapine FUMARATE 25 MG TAB PO SCH ×2 (08:24→10:27)
[2017-07-25] MEDS ORDERED: POTASSIUM CHLORIDE 20 MEQ CONTROLLED RELEASE TAB PO ONE (09:30)
[2017-07-25] MEDS ORDERED: DOCUSATE SODIUM 50 MG/SENNA 8.6 MG TAB PO ONE (09:30)
[2017-07-25] MEDS ORDERED: MAGNESIUM HYDROXIDE SUSP 30 ML CUP PO ONE (09:30)
[2017-07-25] MEDS ORDERED: POTASSIUM PHOSPHATE INJ 15 MMOL in SODIUM CHLORIDE 0.9% INJ 150 ML IV ONE (11:00)
[2017-07-25 13:13] VITALS: BP 173/89; PULSE 106; RESP 21; TEMP 98.1; O2SAT 98
[2017-07-25] MEDS: LORazepam 2 MG/ML VIAL IV PUSH PRN (13:16)
--- NOTE | 2017-07-25 15:40 | HHI.PR ---
Subjective Remarks Patient seen this morning around 9 AM. She says that she got some bad news, took 10 gabapentin tablets intentionally. Cussed with nurse, and patient apparently tried to strangle herself of the telemetry box overnight. Objective Vital Signs Date Time Temp Pulse Resp B/P (MAP) Pulse Ox O2 Delivery O2 Flow Rate FiO2 07/25/17 13:13 98.1 106 21 173/89 (117) 98 07/25/17 07:55 98.1 99 20 166/102 (123) 97 07/25/17 03:48 98.1 113 18 166/89 (114) 95 07/24/17 23:27 98.0 115 18 168/79 (108) 96 07/24/17 21:12 98 07/24/17 20:30 120 07/24/17 19:13 98 3.00 07/24/17 16:22 114 18 172/101 (124) 95 07/24/17 15:46 112 185/97 (126) Result Diagram: 07/25/17 0425 07/25/17 0425 Objective Remarks GENERAL: Patient awake. Still with disjointed speech, however much improved. She is alert and oriented 3. SKIN: Warm and dry. HEAD: Normocephalic. EYES: No scleral icterus. No injection or drainage. NECK: Supple, trachea midline. No JVD. CARDIOVASCULAR: Regular rate and rhythm without murmurs, gallops, or rubs. RESPIRATORY: Breath sounds equal bilaterally. No accessory muscle use. GASTROINTESTINAL: Abdomen soft, non-tender, nondistended. MUSCULOSKELETAL: No cyanosis, or edema. BACK: Nontender without obvious deformity. No CVA tenderness. A/P Assessment and Plan 67-year-old female admitted secondary to acute delirium //Acute delirium Etiology uncertain Check EEG CT of brain is negative Treat for gabapentin overdose IV hydration Follow on telemetry for 24 hours Consider physical therapy evaluation tomorrow if patient's mental status improves Psych consult = Appears to be secondary to gabapentin overdose based on history. Will check gabapentin level. Continue to hold medication. Continue to monitor. Appreciate psychiatry assistance. = Gabapentin level pending. Discussed with psychiatry. Patient will be transferred to inpatient psychiatry when medically clear. //Rhabdomyolysis IV hydration Follow CK levels = CK 1 137 today. Mild improvement. Continue IV fluid. Continue to monitor. //Accelerated hypertension. Systolic blood pressures up to the 180s. Started on nifedipine. Continue to monitor = Blood pressure acceptable. Continue on nifedipine. //Nicotine dependence -We will need to discuss cessation with patient when she is more coherent. //Depression Anxiety Osteoarthritis Fibromyalgia COPD Gastroesophageal reflux disease Benign cardiac murmur No exacerbation of these baseline conditions Follow Clinically = Psychiatry following. Appreciate assistance. //Suspect intentional overdose. = Psychiatry following. Patient may corrected. Continue sitter. Appreciate psychiatry assistance. /Hypokalemia. Potassium 3.1. Replace. Continue to monitor. = 07/25. Replace potassium again. //Hypophosphatemia. 1.7. Replace. DVT prophylaxis SCDs Discharge Planning Patient continues Butt acted due to suspected overdose. Continued rhabdomyolysis. Awaiting improvement in CK. = We will transfer to inpatient psychiatry when stable. Awaiting PT consultation. Brandt Molina MD Jul 25, 2017 15:40
[2017-07-25 16:15] VITALS: BP 156/85; PULSE 102; RESP 20; TEMP 98.1; O2SAT 98
[2017-07-25 19:45] VITALS: BP 163/88; PULSE 105; RESP 18; TEMP 97.9; O2SAT 98
[2017-07-26] MEDS: SODIUM CHLORIDE 0.9% FLUSH 10 ML FLUSH IV FLUSH PRN ×2 (01:10→04:05)
[2017-07-26] MEDS: LORazepam 2 MG/ML VIAL IV PUSH PRN ×2 (01:10→08:08)
[2017-07-26 03:50] VITALS: BP 142/83; PULSE 89; RESP 18; TEMP 97.9; O2SAT 97
[2017-07-26] MEDS: PANTOPRAZOLE SODIUM 40 MG VIAL IV PUSH SCH (04:04)
[2017-07-26] MEDS: cefTRIAXone INJ 1,000 MG in SODIUM CHLORIDE 0.9% INJ 100 ML IV SCH (04:04)
[2017-07-26 05:18] LABS: AUTOMATED NEUTROPHIL # 6.4 TH/MM3 (1.8-7.7); BASOPHIL % 0.1 % (0.0-2.0); EOSINOPHIL # 0.1 TH/MM3 (0-0.4); EOSINOPHIL % 0.8 % (0.0-4.0); HEMATOCRIT 37.6 % (35.0-46.0); HEMOGLOBIN 12.8 GM/DL (11.6-15.3); LYMPH % 21.9 % (9.0-44.0); LYMPHOCYTE # 2.1 TH/MM3 (1.0-4.8); MEAN CELL VOLUME 88.2 FL (80.0-100.0); MEAN CORPUSCULAR HEMOGLOBIN 30.1 PG (27.0-34.0); MEAN CORPUSCULAR HGB CONC 34.1 % (32.0-36.0); MEAN PLATELET VOLUME 9.2 FL (7.0-11.0); MONO % 10.2 % (0.0-8.0); PLATELET COUNT 214 TH/MM3 (150-450); RED BLOOD COUNT 4.26 MIL/MM3 (4.00-5.30); RED CELL DISTRIBUTION WIDTH 15.5 % (11.6-17.2); WHITE BLOOD COUNT 9.6 TH/MM3 (4.0-11.0)
[2017-07-26 05:32] LABS: ALBUMIN 3.5 GM/DL (3.4-5.0); CALCIUM 8.6 MG/DL (8.5-10.1); CREATININE 0.58 MG/DL (0.50-1.00); MAGNESIUM 1.6 MG/DL (1.5-2.5)
[2017-07-26 05:35] LABS: PHOSPHORUS 2.4 MG/DL (2.5-4.9)
[2017-07-26] MEDS: AZITHROMYCIN INJ 500 MG in SODIUM CHLOR 0.9% 250 ML INJ 250 ML IV SCH (05:53)
[2017-07-26 07:08] VITALS: BP 143/92; PULSE 102; RESP 18; TEMP 98; O2SAT 97
[2017-07-26] MEDS: QUEtiapine FUMARATE 25 MG TAB PO SCH ×2 (08:07→12:08)
[2017-07-26] MEDS: SODIUM CHLOR 0.9% 1000 ML INJ 1,000 ML IV SCH (08:07)
[2017-07-26] MEDS: SODIUM CHLORIDE 0.9% FLUSH 10 ML FLUSH IV FLUSH SCH (08:07)
[2017-07-26] MEDS: NIFEdipine 30 MG SUSTAINED RELEASE TAB PO SCH (08:07)
[2017-07-26] MEDS ORDERED: POTASSIUM CHLORIDE 10 MEQ CONTROLLED RELEASE TAB PO ONE (09:00)
[2017-07-26] MEDS ORDERED: MAGNESIUM SULFATE 1 GM PREMIX 100 ML IV ONE (09:00)
[2017-07-26 11:20] VITALS: BP_SYST 153; BP_SYST 164; BP_SYST 170; BP_DIAS 87; BP_DIAS 89; BP_DIAS 91; PULSE 94; RESP 18; TEMP 97.6; O2SAT 98
[2017-07-26] MEDS ORDERED: NIFE30TA8 PO (14:28)
[2017-07-26] MEDS ORDERED: SERO25TA PO (14:28)
--- NOTE | 2017-07-26 14:35 | HHI.PR ---
Subjective Remarks Patient seen this morning. Says she is feeling all right. Denies any chest pain or shortness of breath. Denies any nausea or vomiting. Objective Vital Signs Date Time Temp Pulse Resp B/P (MAP) Pulse Ox O2 Delivery O2 Flow Rate FiO2 07/26/17 11:20 97.6 94 18 170/87 (114) 98 164/91 (115) 153/89 (110) 07/26/17 07:08 98.0 102 18 143/92 (109) 97 07/26/17 03:50 97.9 89 18 142/83 (102) 97 07/25/17 19:45 97.9 105 18 163/88 (113) 98 07/25/17 16:15 98.1 102 20 156/85 (108) 98 I/O 07/25/17 07/25/17 07/25/17 07/26/17 07/26/17 07/26/17 07:00 15:00 23:00 07:00 15:00 23:00 # Voids 2 # Bowel Movements 2 Result Diagram: 07/26/17 0345 07/26/17 0345 Objective Remarks GENERAL: Patient sleeping, wakes up for exam. She is alert and oriented 3. SKIN: Warm and dry. HEAD: Normocephalic. EYES: No scleral icterus. No injection or drainage. NECK: Supple, trachea midline. No JVD. CARDIOVASCULAR: Regular rate and rhythm without murmurs, gallops, or rubs. RESPIRATORY: Breath sounds equal bilaterally. No accessory muscle use. GASTROINTESTINAL: Abdomen soft, non-tender, nondistended. MUSCULOSKELETAL: No cyanosis, or edema. BACK: Nontender without obvious deformity. No CVA tenderness. A/P Assessment and Plan 67-year-old female admitted secondary to acute delirium //Acute delirium Etiology uncertain Check EEG CT of brain is negative Treat for gabapentin overdose IV hydration Follow on telemetry for 24 hours Consider physical therapy evaluation tomorrow if patient's mental status improves Psych consult = Appears to be secondary to gabapentin overdose based on history. Will check gabapentin level. Continue to hold medication. Continue to monitor. Appreciate psychiatry assistance. = Gabapentin level pending still pending, however patient reports overdose. = Discharged to inpatient psychiatry. //Rhabdomyolysis IV hydration Follow CK levels = CK 711 today. Improved. Encourage fluid //Accelerated hypertension. Systolic blood pressures up to the 180s. Started on nifedipine. Continue to monitor = Blood pressure acceptable. Continue on nifedipine. //Nicotine dependence -We will need to discuss cessation with patient when she is more coherent. //Depression Anxiety Osteoarthritis Fibromyalgia COPD Gastroesophageal reflux disease Benign cardiac murmur No exacerbation of these baseline conditions Follow Clinically = Psychiatry following. Appreciate assistance. //Suspect intentional overdose. = Psychiatry following. Patient may corrected. Continue sitter. Appreciate psychiatry assistance. /Hypokalemia. Potassium 3.1. Replace. Continue to monitor. = 07/25. Replace potassium again. = 07/26. Replace again. //Hypophosphatemia. Proved after placement DVT prophylaxis SCDs Discharge Planning Patient continues Butt acted due to overdose. = We will transfer to inpatient psychiatry. -encourage fluids Brandt Molina MD Jul 26, 2017 14:35
--- NOTE | 2017-07-26 14:42 | HHI.DS ---
Discharge Summary Admission Date Jul 23, 2017 at 21:21 Discharge Date: Jul 26, 2017 Admitting Diagnosis gabapentin overdose, rhabdomyolysis, Butt act (1) Acute delirium ICD Code: R41.0 - Disorientation, unspecified (2) Rhabdomyolysis ICD Code: M62.82 - Rhabdomyolysis Status: Acute Procedures No invasive procedures Brief History - From Admission Mrs. Krishnamurthy is a 67-year-old female. She is on a Butt act here secondary to being found confused in her front yard. She does not oriented to place time or self she has previously stated that the year is 1983. Most of the time she is in the delirium. Findings in the ER are positive for mild rhabdomyolysis. She takes gabapentin at baseline and overdose cannot be ruled out. No prior history of known seizure disorder. At this point she is not able to contribute any meaningful history. CBC/BMP: 07/26/17 0345 07/26/17 0345 Significant Findings Laboratory Tests Test 07/23/17 16:22 07/23/17 21:15 07/24/17 06:41 07/24/17 16:22 Total Creatine Kinase 1744 U/L (26-192) 1761 U/L (26-192) 1555 U/L (26-192) Creatine Kinase MB 8.7 NG/ML (0.5-3.6) 6.1 NG/ML (0.5-3.6) 5.3 NG/ML (0.5-3.6) White Blood Count 11.7 TH/MM3 (4.0-11.0) Neutrophils (%) (Auto) 91.1 % (16.0-70.0) Lymphocytes (%) (Auto) 6.4 % (9.0-44.0) Neutrophils # (Auto) 10.6 TH/MM3 (1.8-7.7) Lymphocytes # (Auto) 0.8 TH/MM3 (1.0-4.8) Random Glucose 127 MG/DL (74-106) Aspartate Amino Transf (AST/SGOT) 56 U/L (15-37) Potassium Level 3.1 MEQ/L (3.5-5.1) Blood Gas HCO3 21 mmol/L (22-26) Arterial Blood pH 7.48 (7.380-7.420) Arterial Blood Partial Pressure CO2 29 mmHg (38-42) Test 07/25/17 04:25 07/26/17 03:45 White Blood Count 11.8 TH/MM3 (4.0-11.0) Neutrophils (%) (Auto) 79.6 % (16.0-70.0) Monocytes (%) (Auto) 9.8 % (0.0-8.0) 10.2 % (0.0-8.0) Neutrophils # (Auto) 9.4 TH/MM3 (1.8-7.7) Monocytes # (Auto) 1.2 TH/MM3 (0-0.9) 1.0 TH/MM3 (0-0.9) Random Glucose 116 MG/DL (74-106) Phosphorus Level 1.7 MG/DL (2.5-4.9) 2.4 MG/DL (2.5-4.9) Potassium Level 3.1 MEQ/L (3.5-5.1) 3.2 MEQ/L (3.5-5.1) Total Creatine Kinase 1137 U/L (26-192) 711 U/L (26-192) Creatine Kinase MB 7.2 NG/ML (0.5-3.6) 5.8 NG/ML (0.5-3.6) Blood Urea Nitrogen 6 MG/DL (7-18) Imaging Last Impressions Chest CT 07/24/17 0000 Signed Impressions: Service Date/Time: Monday, July 24, 2017 06:14 - CONCLUSION: Clear lungs. Coronary artery calcification. George Conn MD Abdomen X-Ray 07/24/17 0000 Signed Impressions: Service Date/Time: Monday, July 24, 2017 04:07 - CONCLUSION: No acute disease. George Conn MD Head CT 07/23/17 0851 Signed Impressions: Service Date/Time: Sunday, July 23, 2017 09:11 - CONCLUSION: 1. No acute intracranial abnormality identified. Raul Lewis MD Chest X-Ray 07/23/17 0851 Signed Impressions: Service Date/Time: Sunday, July 23, 2017 09:09 - CONCLUSION: 50 mm nodular density within the left lung base. This may simulate a rounded atelectasis. I cannot exclude a developing infiltrate or a pulmonary nodule. Consider a followup PA and lateral view of the chest upon resolution of acute symptoms to document resolution. Erwin Holt Jr., MD Hospital Course Head CT on admission with no acute findings. CK elevated during admission up to 1700s, improved with IV fluids. Patient reported to have overdosed on gabapentin tablets. Mental status improved by withholding gabapentin, IV fluids. Patient with attempted self-harm using telemetry box. Patient was discharged to inpatient psychiatry. Courage by mouth fluids. Follow-up hypokalemia at receiving facility. Patient was also found to have elevated blood pressures up to 180 systolic. This improved on nifedipine which will be continued. for problem-based summary from most recent progress note, please see below. 67-year-old female admitted secondary to acute delirium //Acute delirium Etiology uncertain Check EEG CT of brain is negative Treat for gabapentin overdose IV hydration Follow on telemetry for 24 hours Consider physical therapy evaluation tomorrow if patient's mental status improves Psych consult = Appears to be secondary to gabapentin overdose based on history. Will check gabapentin level. Continue to hold medication. Continue to monitor. Appreciate psychiatry assistance. = Gabapentin level pending still pending, however patient reports overdose. = Discharged to inpatient psychiatry. //Rhabdomyolysis IV hydration Follow CK levels = CK 711 today. Improved. Encourage fluid //Accelerated hypertension. Systolic blood pressures up to the 180s. Started on nifedipine. Continue to monitor = Blood pressure acceptable. Continue on nifedipine. //Nicotine dependence -We will need to discuss cessation with patient when she is more coherent. //Depression Anxiety Osteoarthritis Fibromyalgia COPD Gastroesophageal reflux disease Benign cardiac murmur No exacerbation of these baseline conditions Follow Clinically = Psychiatry following. Appreciate assistance. //Suspect intentional overdose. = Psychiatry following. Patient may corrected. Continue sitter. Appreciate psychiatry assistance. /Hypokalemia. Potassium 3.1. Replace. Continue to monitor. = 07/25. Replace potassium again. = 07/26. Replace again. //Hypophosphatemia. Proved after placement DVT prophylaxis SCDs Discharge Planning Patient continues Butt acted due to overdose. = We will transfer to inpatient psychiatry. -encourage fluids Pt Condition on Discharge: Good Discharge Disposition: Disc to Psych Care Fac Discharge Time: > 30 minutes Discharge Instructions DIET: Follow Instructions for: Heart Healthy Diet Speech Therapy-Diet Recommends: Regular Activities you can perform: Regular-No Restrictions New Medications: Nifedipine ER 24 HR (Nifedipine ER 24 HR) 30 Mg Tab 30 MG PO DAILY for Blood Pressure Management for 30 Days, #30 TAB Quetiapine (Seroquel) 25 Mg Tab 12.5 MG PO BID@09,12 for agitation for 30 Days, TAB Brandt Molina MD Jul 26, 2017 14:42
[2017-07-27] MEDS ORDERED: LYRI225C PO (13:39)
== END 2017-07-26 14:32 | DRG 918 ==
LOC: NEPE 08:24 → NEDA 11:13 → INTOOBSV 11:13 → NEDH 16:44 → OBSVTOIN 21:21 → NEPFCDU 21:52
PROVIDERS: ADMIT Internal Medicine; ATTEND Internal Medicine
DX: T42.6X1A Poisoning by other antiepileptic and sedative-hypnotic drugs, accidental (unintentional), initial encounter (principal); N17.9 Acute kidney failure, unspecified; M62.82 Rhabdomyolysis; F05 Delirium due to known physiological condition; E83.39 Other disorders of phosphorus metabolism; J44.9 Chronic obstructive pulmonary disease, unspecified; M19.90 Unspecified osteoarthritis, unspecified site; F17.210 Nicotine dependence, cigarettes, uncomplicated; F32.9 Major depressive disorder, single episode, unspecified; F41.9 Anxiety disorder, unspecified; K21.9 Gastro-esophageal reflux disease without esophagitis; M79.7 Fibromyalgia; E03.9 Hypothyroidism, unspecified; I10 Essential (primary) hypertension; E87.6 Hypokalemia; E78.00 Pure hypercholesterolemia, unspecified; R00.0 Tachycardia, unspecified; R01.0 Benign and innocent cardiac murmurs
CPT/HCPCS: 36600; 70450; 71045; 71250; 74018; 80053; 80069; 80171; 80307; 81001; 82140; 82550; 82552; 82805; 83605; 83735; 84443; 84484; 85025; 85610; 85730; 87040; 87086; 93005; 94640; 94664; 95819; 96361; 96374; 96375; 96376; C9113; J0456; J0696; J2060; J2405; J2920; J2930; J3475; J7030; J7050

== ENCOUNTER 2017-07-26 11:29 | Inpatient (IN) | payer OTHER, MEDICAID, MEDICARE ==
[~2017-07-26] VITALS: Ht 165.1 cm; Wt 79.6 kg
[2017-07-26] MEDS ORDERED: NIFE30TA8 PO (14:28)
[2017-07-26] MEDS ORDERED: SERO25TA PO (14:28)
[2017-07-26 16:49] VITALS: BP 164/89; PULSE 104; RESP 16; TEMP 98; O2SAT 95
[2017-07-26 18:00] VITALS: BP 157/91; PULSE 112; RESP 16; TEMP 98.6; O2SAT 94
[2017-07-26] MEDS ORDERED: MAGNESIUM HYDROXIDE SUSP 30 ML CUP PO PRN (22:30)
[2017-07-26] MEDS ORDERED: ALUMINUM/MAGNESIUM/SIMETH 30 ML CUP PO PRN (22:30)
[2017-07-26] MEDS ORDERED: NICOTINE 21 MG/24 HR PATCH T-DERMAL PRN (22:30)
[2017-07-26] MEDS: ACETAMINOPHEN 325 MG TAB PO PRN (22:30)
[2017-07-27] MEDS: ACETAMINOPHEN 325 MG TAB PO PRN ×3 (05:00→21:17)
[2017-07-27 06:18] VITALS: BP 154/97; RESP 20; TEMP 98.3; O2SAT 96
[2017-07-27] MEDS ORDERED: PNEUMOCOCCAL POLYVALENT INJ 25 MCG/0.5 ML SYR IM ONE (10:00)
[2017-07-27] MEDS: NIFEdipine 30 MG SUSTAINED RELEASE TAB PO SCH (10:27)
[2017-07-27 11:21] LABS: ALBUMIN 3.9 GM/DL (3.4-5.0); ALKALINE PHOSPHATASE 99 U/L (45-117); ALT (GPT) 33 U/L (10-53); AST (GOT) 41 U/L (15-37); BICARBONATE 28.1 MEQ/L (21.0-32.0); BLOOD UREA NITROGEN 5 MG/DL (7-18); CALCIUM 9.4 MG/DL (8.5-10.1); CHLORIDE 103 MEQ/L (98-107); CHOLESTEROL 158 MG/DL (120-200); CHOLESTEROL/ HDL RATIO 2.78 RATIO; CREATININE 0.72 MG/DL (0.50-1.00); GLOMERULAR FILTRATION RATE 80 ML/MIN (>89); GLUCOSE,RANDOM 125 MG/DL (74-106); HDL CHOLESTEROL 56.8 MG/DL (40.0-60.0); LDL CHOLESTEROL 76 MG/DL (0-99); MAGNESIUM 1.7 MG/DL (1.5-2.5); SODIUM (NA) 140 MEQ/L (136-145); TOTAL BILIRUBIN ADULT 0.6 MG/DL (0.2-1.0); TRIGLYCERIDES 127 MG/DL (42-150)
--- NOTE | 2017-07-27 11:23 | PD.CONS ---
[facility] By [facility] Physician Unknown Diagnoses: History of Present Illness 67-year-old female recently admitted to CDU with altered mental status, found to have intentionally overdosed on gabapentin, as well as found to have rhabdomyolysis both of which improved. She is seen today in psychiatry unit. Sitting in chair. Says she is feeling all right. She reports diffuse pain, however says this is improved from yesterday. Denies any chest pain or shortness of breath. Denies any nausea or vomiting. Patient is still unable to tell me exactly what her medications are at home, but does state she wants them.. Review of Systems Performed and negative except for HPI and past medical history. Past Family Social History Allergies: Coded Allergies: aspirin (Unverified Allergy, Unknown, 01/22/17) JITTERS Past Medical History Patient denies any surgeries. Past Surgical History Patient denies any surgeries. Active Ordered Medications Current Medications Medications (Trade) Dose Ordered Sig/Kike Route Start Time Stop Time Status Last Admin (Tylenol) 650 mg Q4H PRN PO 07/26/17 22:30 07/27/17 05:05 (Milk Of Magnesia Liq) 30 ml DAILY PRN PO 07/26/17 22:30 (Mag-Al Plus Susp Liq) 30 ml Q6H PRN PO 07/26/17 22:30 (Habitrol 21 Mg Patch.24 Hr) 1 patch DAILY PRN T-DERMAL 07/26/17 22:30 (Procardia Xl) 30 mg DAILY PO 07/27/17 09:00 07/27/17 10:27 Family History Reviewed with the patient and found to be currently noncontributory. Social History Smokes 1 pack per day. No history of alcohol or illicit drug use. Physical Exam Vital Signs Vital Signs Date Time Temp Pulse Resp B/P (MAP) Pulse Ox O2 Delivery O2 Flow Rate FiO2 07/27/17 06:18 98.3 20 154/97 (116) 96 07/26/17 18:00 98.6 112 16 157/91 (113) 94 07/26/17 16:49 98.0 104 16 164/89 (114) 95 Physical Exam GENERAL: This is a well-nourished, well-developed patient, sitting up in chair. In no apparent distress. SKIN: No rashes, ecchymoses or lesions. Cool and dry. HEAD: Atraumatic. Normocephalic. No temporal or scalp tenderness. EYES: Pupils equal round and reactive. Extraocular motions intact. No scleral icterus. No injection or drainage. ENT: Nose without bleeding, purulent drainage or septal hematoma. Throat without erythema, tonsillar hypertrophy or exudate. Uvula midline. Airway patent. NECK: Trachea midline. No JVD or lymphadenopathy. Supple, nontender, no meningeal signs. CARDIOVASCULAR: Regular rate and rhythm without murmurs, gallops, or rubs. RESPIRATORY: Clear to auscultation. Breath sounds equal bilaterally. No wheezes , rales, or rhonchi. GASTROINTESTINAL: Abdomen soft, non-tender, nondistended. No hepato-splenomegaly , or palpable masses. No guarding. MUSCULOSKELETAL: Extremities without clubbing, cyanosis, or edema. No joint tenderness, effusion, or edema noted. No calf tenderness. Negative Homans sign bilaterally. NEUROLOGICAL: Awake and alert. Cranial nerves II through XII intact. Patient still speaking and moving a little slow. Otherwise normal speech. Five out of 5 muscle strength in all muscle groups. Laboratory Laboratory Tests Test 07/27/17 10:03 Assessment and Plan Assessment and Plan //Depression //Intentional overdose -Management as per psychiatry. //Hypertension. Blood pressure acceptable. Continue nifedipine. //Chronic conditions GERD, COPD, hypothyroidism. TSH recently within normal limits. Will place on albuterol inhaler as needed. Nursing to contact pharmacy to verify home medication list. //Tobacco abuse. Smoking cessation provided. //Prophylaxis. Ambulatory. Discussed Condition With Patient, nurse. Brandt Molina MD Jul 27, 2017 11:23
[2017-07-27] MEDS ORDERED: POTASSIUM PHOSPHATE/SODIUM PHOSPHATE 250 MG TAB PO ONE (11:30)
[2017-07-27] MEDS ORDERED: ALBUTEROL SULFATE 90 MCG/ACT HFA 8 GM INHALER INH PRN (11:30)
[2017-07-27] MEDS ORDERED: POTASSIUM CHLORIDE 10 MEQ CONTROLLED RELEASE TAB PO ONE (11:30)
[2017-07-27] MEDS ORDERED: MAGNESIUM OXIDE 400 MG TAB PO ONE (13:00)
[2017-07-27] MEDS ORDERED: LYRI225C PO (13:39)
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
[2017-07-27] MEDS: ESCITALOPRAM OXALATE 10 MG TAB PO SCH (15:39)
[2017-07-27 18:27] VITALS: BP 168/81; PULSE 97; RESP 20; TEMP 98.1; O2SAT 96
[2017-07-28 05:42] VITALS: BP 156/93; PULSE 88; RESP 16; TEMP 97.7; O2SAT 97
[2017-07-28] MEDS ORDERED: MAGNESIUM OXIDE 400 MG TAB PO ONE (08:00)
[2017-07-28] MEDS ORDERED: POTASSIUM PHOSPHATE/SODIUM PHOSPHATE 250 MG TAB PO SCH (08:00)
[2017-07-28] MEDS ORDERED: POTASSIUM CHLORIDE 10 MEQ CONTROLLED RELEASE TAB PO SCH (09:00)
[2017-07-28 09:11] LABS: HEMOGLOBIN A1C 6.5 % (4.3-6.0)
[2017-07-28] MEDS: NIFEdipine 30 MG SUSTAINED RELEASE TAB PO SCH (10:41)
[2017-07-28] MEDS ORDERED: MAGNESIUM OXIDE 400 MG TAB PO SCH (11:00)
[2017-07-28 11:15] LABS: AUTOMATED NEUTROPHIL # 5.9 TH/MM3 (1.8-7.7); BASOPHIL % 0.3 % (0.0-2.0); EOSINOPHIL # 0.1 TH/MM3 (0-0.4); EOSINOPHIL % 1.3 % (0.0-4.0); HEMATOCRIT 41.9 % (35.0-46.0); HEMOGLOBIN 14.3 GM/DL (11.6-15.3); LYMPH % 19.3 % (9.0-44.0); LYMPHOCYTE # 1.6 TH/MM3 (1.0-4.8); MEAN CELL VOLUME 89.2 FL (80.0-100.0); MEAN CORPUSCULAR HEMOGLOBIN 30.3 PG (27.0-34.0); MONO % 9.5 % (0.0-8.0); MONOCYTE # 0.8 TH/MM3 (0-0.9); NEUT % 69.6 % (16.0-70.0); PLATELET COUNT 230 TH/MM3 (150-450); WHITE BLOOD COUNT 8.5 TH/MM3 (4.0-11.0)
[2017-07-28 11:34] LABS: CALCIUM 9.5 MG/DL (8.5-10.1); CREATININE 0.78 MG/DL (0.50-1.00)
--- NOTE | 2017-07-28 12:43 | HHI.PR ---
Subjective Remarks Follow-up on patient with suicidal ideation, hypertension, rhabdomyolysis. Patient seen and examined. Patient states she feels great today. She denies any new medical complaints. She denies any chest pain or shortness of breath. She denies any nausea, vomiting or abdominal pain. Denies any fever or chills. Objective Vitals Vital Signs Date Time Temp Pulse Resp B/P (MAP) Pulse Ox O2 Delivery O2 Flow Rate FiO2 07/28/17 05:42 97.7 88 16 156/93 (114) 97 07/27/17 18:27 98.1 97 20 168/81 (110) 96 I/O 07/27/17 07/27/17 07/27/17 07/28/17 07/28/17 07/28/17 07:00 15:00 23:00 07:00 15:00 23:00 Intake Total 240 ml 480 ml Balance 240 ml 480 ml Intake Oral 240 ml 480 ml Result Diagram: 07/28/1791407/28/17914 Objective Remarks GENERAL: This is a well-nourished, well-developed female patient, INAD. Sitting in the music room. Awake and alert. Pleasant and talkative. SKIN: Cool and dry. HEAD: Atraumatic. Normocephalic. EYES: Extraocular motions intact. No scleral icterus. No injection or drainage. ENT: Nose without bleeding or purulent drainage. Airway patent. MMM. NECK: Trachea midline. CARDIOVASCULAR: Tachycardic without murmurs, gallops, or rubs. RESPIRATORY: Clear to auscultation. Breath sounds equal bilaterally. No wheezes , rales, or rhonchi. GASTROINTESTINAL: Abdomen soft, non-tender, nondistended. MUSCULOSKELETAL: Extremities without clubbing, cyanosis, or edema. NEUROLOGICAL: Awake and alert. Able to move all extremities spontaneously. No focal neurologic findings. Normal speech. Medications and IVs Current Medications Medications (Trade) Dose Ordered Sig/Kike Route Start Time Stop Time Status Last Admin (Tylenol) 650 mg Q4H PRN PO 07/26/17 22:30 07/27/17 21:17 (Milk Of Magnesia Liq) 30 ml DAILY PRN PO 07/26/17 22:30 (Mag-Al Plus Susp Liq) 30 ml Q6H PRN PO 07/26/17 22:30 (Habitrol 21 Mg Patch.24 Hr) 1 patch DAILY PRN T-DERMAL 07/26/17 22:30 (Procardia Xl) 30 mg DAILY PO 07/27/17 09:00 07/28/17 10:41 (Proair Hfa Inh) 2 puff Q6H PRN INH 07/27/17 11:30 (Atarax) 50 mg Q6H PRN PO 07/27/17 14:00 Future Hold (Lexapro) 10 mg DAILY PO 07/27/17 14:00 Future Hold A/P Assessment and Plan //Depression //Intentional overdose -Management as per psychiatry. //Hypertension //Tachycardia -BP not optimized -Continue on nifedipine dose 30 mg daily. -EKG reviewed, sinus tachycardia. Start metoprolol low-dose 25 mg twice daily. -Continue to monitor heart rate and BP and adjust treatment accordingly. //Hypokalemia //Hypophosphatemia -oral repletion ordered -mag level 1.7, phos 2.0, given one time po repletion -recheck BMP, phos and mag to monitor response //Rhabdomyolysis -CK trending down -Continue to encourage good oral intake //Diabetes -Hemoglobin A1c 6.5 -Change from regular diet to heart healthy diabetic diet -Accu-Cheks and insulin sliding scale //Chronic conditions GERD, COPD, hypothyroidism. TSH recently within normal limits. Continue on albuterol inhaler as needed. //Tobacco abuse. Smoking cessation provided. //DVT Prophylaxis. Ambulatory. Shannon Loyd Jul 28, 2017 12:43
[2017-07-28] MEDS ORDERED: POTASSIUM CHLORIDE 10 MEQ CONTROLLED RELEASE TAB PO ONE (12:45)
[2017-07-28] MEDS ORDERED: DEXTROSE 50% IN WATER 50 ML VIAL(D50) IV PUSH PRN (12:45)
[2017-07-28] MEDS ORDERED: GLUCAGON 1 MG/ML VIAL OTHER PRN (12:45)
--- NOTE | 2017-07-28 13:26 | HHI.PYPN ---
Subjective Remarks Patient was seen and case discussed with nursing. Patient is complaining of vaginal itching and burning. She will be seeing the medical doctor today. Patient minimizes her behavior before admission. She says she did not overdose. Affect is anxious. Thought processes mildly disorganized. She does deny psychotic symptoms. We spoke about starting her Lexapro that is on hold and she gives consent Mental Status Examination Appearance: Appropriate Consciousness: Alert Orientation: x4 Motor Activity: Normal gait Speech: Unremarkable Language: Adequate Fund of Knowledge: Adequate Attention and Concentration: Adequate Memory: Unremarkable Mood: Anxious (mildly), Other (euthymic to mildly dysphoric) Affect: Other (good range and intensity) Thought Process & Associations: Intact Thought Content: Appropriate Hallucination Type: None Delusion Type: None Suicidal Ideation: No Suicidal Plan: No Suicidal Intention: No Homicidal Ideation: No Homicidal Plan: No Homicidal Intention: No Insight: Adequate Judgment: Adequate Results Labs Test 07/28/17 09:15 White Blood Count 8.5 TH/MM3 Red Blood Count 4.70 MIL/MM3 Hemoglobin 14.3 GM/DL Hematocrit 41.9 % Mean Corpuscular Volume 89.2 FL Mean Corpuscular Hemoglobin 30.3 PG Mean Corpuscular Hemoglobin Concent 34.0 % Red Cell Distribution Width 16.0 % Platelet Count 230 TH/MM3 Mean Platelet Volume 9.0 FL Neutrophils (%) (Auto) 69.6 % Lymphocytes (%) (Auto) 19.3 % Monocytes (%) (Auto) 9.5 % Eosinophils (%) (Auto) 1.3 % Basophils (%) (Auto) 0.3 % Neutrophils # (Auto) 5.9 TH/MM3 Lymphocytes # (Auto) 1.6 TH/MM3 Monocytes # (Auto) 0.8 TH/MM3 Eosinophils # (Auto) 0.1 TH/MM3 Basophils # (Auto) 0.0 TH/MM3 CBC Comment DIFF FINAL Differential Comment Blood Urea Nitrogen 5 MG/DL Creatinine 0.78 MG/DL Random Glucose 139 MG/DL Calcium Level 9.5 MG/DL Sodium Level 140 MEQ/L Potassium Level 3.4 MEQ/L Chloride Level 101 MEQ/L Carbon Dioxide Level 31.0 MEQ/L Anion Gap 8 MEQ/L Estimat Glomerular Filtration Rate 73 ML/MIN Total Creatine Kinase 499 U/L Creatine Kinase MB 3.8 NG/ML Creatine Kinase MB % 0.8 % Vitals/IOs Vital Signs Date Time Temp Pulse Resp B/P (MAP) Pulse Ox O2 Delivery O2 Flow Rate FiO2 07/28/17 05:42 97.7 88 16 156/93 (114) 97 Intake and Output 07/28/17 07/28/17 07/29/17 08:00 16:00 00:00 Intake Total 480 ml Balance 480 ml Assessment & Plan Problem List: (1) Adjustment disorder with mixed disturbance of emotions and conduct ICD Codes: F43.25 - Adjustment disorder with mixed disturbance of emotions and conduct Assessment & Plan UA ordered, patient continues to be followed by the medical doctor will address her vaginal itching. Justification for Cont. Inpt. Patient will decompensate in a less restrictive setting Request HC Surrog/Guard Advoc?: No Zack Yancey DO Jul 28, 2017 13:26
[2017-07-28] MEDS: hydrOXYzine HCL 50 MG TAB PO PRN ×2 (13:44→21:40)
[2017-07-28] MEDS: INSULIN ASPART SUPPLEMENTAL SCALE SQ SCH ×2 (17:10→21:00)
[2017-07-28 18:50] VITALS: BP 169/89; PULSE 116; RESP 16; TEMP 98.3; O2SAT 95
[2017-07-28] MEDS: METOPROLOL TARTRATE 25 MG TAB PO SCH (21:40)
[2017-07-29 05:58] VITALS: BP 147/86; PULSE 81; RESP 16; TEMP 97.7; O2SAT 97
[2017-07-29] MEDS: INSULIN ASPART SUPPLEMENTAL SCALE SQ SCH ×2 (07:30→12:00)
[2017-07-29 08:15] LABS: BICARBONATE 31.8 MEQ/L (21.0-32.0); CALCIUM 8.9 MG/DL (8.5-10.1); CREATININE 0.64 MG/DL (0.50-1.00); MAGNESIUM 1.8 MG/DL (1.5-2.5); PHOSPHORUS 3.1 MG/DL (2.5-4.9)
[2017-07-29] MEDS: NIFEdipine 30 MG SUSTAINED RELEASE TAB PO SCH (08:33)
[2017-07-29] MEDS: ESCITALOPRAM OXALATE 10 MG TAB PO SCH (08:33)
[2017-07-29] MEDS: METOPROLOL TARTRATE 25 MG TAB PO SCH (08:33)
[2017-07-29] MEDS ORDERED: POTASSIUM CHLORIDE 10 MEQ CONTROLLED RELEASE TAB PO ONE (09:00)
[2017-07-29] MEDS ORDERED: POTASSIUM CHLORIDE 10 MEQ CONTROLLED RELEASE TAB PO SCH (09:00)
--- NOTE | 2017-07-29 09:45 | HHI.PR ---
Subjective Remarks Follow-up on patient with suicidal ideation, hypertension, rhabdomyolysis. Patient seen and examined. Patient states she feels very well. She denies any medical complaints. Patient reports long history of low potassium level with. Recurrent episodes of leg cramping. She also states that she takes Synthroid 200 mcg at home. Discussed with nurse, no acute issues identified. Objective Vitals Vital Signs Date Time Temp Pulse Resp B/P (MAP) Pulse Ox O2 Delivery O2 Flow Rate FiO2 07/29/17 05:58 97.7 81 16 147/86 (106) 97 07/28/17 18:50 98.3 116 16 169/89 (115) 95 I/O 07/28/17 07/28/17 07/28/17 07/29/17 07/29/17 07/29/17 07:00 15:00 23:00 07:00 15:00 23:00 Intake Total 480 ml 480 ml 240 ml Balance 480 ml 480 ml 240 ml Intake Oral 480 ml 480 ml 240 ml Result Diagram: 07/28/17 0915 07/29/17 0624 Objective Remarks GENERAL: This is a well-nourished, well-developed female patient, INAD. Awake and alert. Ambulating in the unit. SKIN: Cool and dry. HEAD: Atraumatic. Normocephalic. EYES: Extraocular motions intact. No scleral icterus. No injection or drainage. ENT: Nose without bleeding or purulent drainage. Airway patent. MMM. NECK: Trachea midline. CARDIOVASCULAR: Regular rate and rhythm without murmurs, gallops, or rubs. RESPIRATORY: Clear to auscultation. Breath sounds equal bilaterally. No wheezes , rales, or rhonchi. GASTROINTESTINAL: Abdomen soft, non-tender, nondistended. MUSCULOSKELETAL: Extremities without clubbing, cyanosis, or edema. NEUROLOGICAL: Awake and alert. Able to move all extremities spontaneously. No focal neurologic findings. Normal speech. Medications and IVs Current Medications Medications (Trade) Dose Ordered Sig/Kike Route Start Time Stop Time Status Last Admin (Tylenol) 650 mg Q4H PRN PO 07/26/17 22:30 07/27/17 21:17 (Milk Of Magnesia Liq) 30 ml DAILY PRN PO 07/26/17 22:30 (Mag-Al Plus Susp Liq) 30 ml Q6H PRN PO 07/26/17 22:30 (Habitrol 21 Mg Patch.24 Hr) 1 patch DAILY PRN T-DERMAL 07/26/17 22:30 (Procardia Xl) 30 mg DAILY PO 07/27/17 09:00 07/29/17 08:33 (Proair Hfa Inh) 2 puff Q6H PRN INH 07/27/17 11:30 (Atarax) 50 mg Q6H PRN PO 07/27/17 14:00 Future hold 07/28/17 21:40 (Lexapro) 10 mg DAILY PO 07/27/17 14:00 Future hold 07/29/17 08:33 (Lopressor) 25 mg Q12HR PO 07/28/17 21:00 07/29/17 08:33 (D50w (Vial) Inj) 50 ml UNSCH PRN IV PUSH 07/28/17 12:45 (Glucagon Inj) 1 mg UNSCH PRN OTHER 07/28/17 12:45 (NovoLOG SUPPLEMENTAL SCALE) 1 ACHS SLIDING SCALE SQ 07/28/17 17:00 (KCl) 10 meq DAILY PO 07/29/17 09:00 07/29/17 09:55 A/P Assessment and Plan //Depression //Intentional overdose -Management as per psychiatry. //Hypertension //Tachycardia, resolved - BP improved -Continue on nifedipine dose 30 mg daily. -EKG reviewed, sinus tachycardia. Continue on metoprolol low-dose 25 mg twice daily. -Continue to monitor heart rate and BP and adjust treatment accordingly. //Hypokalemia //Hypophosphatemia, resolved -K persistently low despite oral repletion. Give another 40 mEq now and begin 10 mEq daily. Patient will need to follow-up for repeat BMP in the next 3 -5 days. //Rhabdomyolysis -CK trending down -Continue to encourage good oral intake //Diabetes -Hemoglobin A1c 6.5 -Change from regular diet to heart healthy diabetic diet -Accu-Cheks and insulin sliding scale //Chronic conditions GERD, COPD, hypothyroidism. TSH recently within normal limits. Continue on albuterol inhaler as needed. //Tobacco abuse. Smoking cessation provided. //DVT Prophylaxis. Ambulatory. Shannon Loyd Jul 29, 2017 09:45
[2017-07-29] MEDS ORDERED: ESCI10TA PO (09:47)
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
[2017-07-29] MEDS ORDERED: NIFE30TA8 PO (10:24)
[2017-07-29] MEDS ORDERED: KLOR10TA PO (10:24)
[2017-07-29] MEDS ORDERED: LEVO.2 PO (10:24)
[2017-07-29] MEDS ORDERED: METO25TA3 PO (10:24)
== END 2017-07-29 13:45 | disposition home or self-care (01) | DRG 882 ==
LOC: H260 14:39
PROVIDERS: ADMIT Psychiatry & Neurology Psychiatry; ATTEND Psychiatry & Neurology Psychiatry
DX: F43.25 Adjustment disorder with mixed disturbance of emotions and conduct (principal); M62.82 Rhabdomyolysis; J44.9 Chronic obstructive pulmonary disease, unspecified; I10 Essential (primary) hypertension; K21.9 Gastro-esophageal reflux disease without esophagitis; E03.9 Hypothyroidism, unspecified; T42.6X2A Poisoning by other antiepileptic and sedative-hypnotic drugs, intentional self-harm, initial encounter; R00.0 Tachycardia, unspecified; E87.6 Hypokalemia; E83.39 Other disorders of phosphorus metabolism; E11.9 Type 2 diabetes mellitus without complications; F17.210 Nicotine dependence, cigarettes, uncomplicated; F41.9 Anxiety disorder, unspecified; Z81.8 Family history of other mental and behavioral disorders; Z88.6 Allergy status to analgesic agent; Z91.410 Personal history of adult physical and sexual abuse
CPT/HCPCS: 80048; 80053; 80061; 82550; 82552; 82948; 83036; 83735; 84100; 85025